=== PATIENT | female | born 1990 | race Asian ===

== ENCOUNTER → 2019-12-04 13:50 | Outpatient (BNVA) | payer BC, SELFPAY | PROVIDERS: Visit Provider Nurse Practitioner Women's Health | DX: Z34.80 Encounter for supervision of other normal pregnancy, unspecified trimester (principal) | CPT/HCPCS: 80053; 80307; 84315; 85027; 86592; 86762; 86803; 86850; 86900; 87340; 87806 ==

== ENCOUNTER → 2019-12-10 10:53 | Outpatient (BNVA) | payer BC, SELFPAY | PROVIDERS: Visit Provider Obstetrics & Gynecology | DX: Z34.80 Encounter for supervision of other normal pregnancy, unspecified trimester (principal) | CPT/HCPCS: 84315; 87491; 87591; 88175 ==

== ENCOUNTER → 2019-12-19 14:20 | Outpatient (BNVA) | payer BC, SELFPAY | PROVIDERS: Visit Provider Obstetrics & Gynecology | DX: Z34.90 Encounter for supervision of normal pregnancy, unspecified, unspecified trimester (principal) | CPT/HCPCS: 76805 ==

== ENCOUNTER → 2019-12-22 15:10 | Outpatient (BNVA) | payer BC, SELFPAY | PROVIDERS: Visit Provider Obstetrics & Gynecology | DX: Z34.90 Encounter for supervision of normal pregnancy, unspecified, unspecified trimester (principal) | CPT/HCPCS: 82950; 84315 ==

== ENCOUNTER → 2020-01-19 12:57 | Outpatient (BNVA) | payer BC, SELFPAY | PROVIDERS: Visit Provider Obstetrics & Gynecology | DX: O26.899 Other specified pregnancy related conditions, unspecified trimester (principal); N89.8 Other specified noninflammatory disorders of vagina; O23.599 Infection of other part of genital tract in pregnancy, unspecified trimester; B96.89 Other specified bacterial agents as the cause of diseases classified elsewhere; Z3A.00 Weeks of gestation of pregnancy not specified | CPT/HCPCS: 84315; 87210 ==

== ENCOUNTER → 2020-02-10 11:56 | Outpatient (BNVA) | payer BC, SELFPAY | PROVIDERS: Visit Provider Obstetrics & Gynecology | DX: Z34.82 Encounter for supervision of other normal pregnancy, second trimester (principal) | CPT/HCPCS: 84315; 85025 ==

== ENCOUNTER → 2020-04-06 13:02 | Outpatient (BNVA) | payer BC, SELFPAY | PROVIDERS: Visit Provider Obstetrics & Gynecology | DX: O09.893 Supervision of other high risk pregnancies, third trimester (principal); O40.3XX0 Polyhydramnios, third trimester, not applicable or unspecified; O24.410 Gestational diabetes mellitus in pregnancy, diet controlled; Z3A.00 Weeks of gestation of pregnancy not specified | CPT/HCPCS: 84315; 87081 ==

== ENCOUNTER 2020-04-14 12:27 | Outpatient (CLI) | payer BC, SELFPAY ==
--- NOTE | 2020-04-14 12:34 | US_ITS ---
WS: [id number] ULTRASOUND OB LIMITED TECHNIQUE: Limited ultrasound examination of the fetus. CLINICAL INFORMATION: WELL BEING COMPARISON: April 06, 2020 FINDINGS: Cervix measures 4.5 cm Single interuterine gestation. presentation is cephalic Placental location is anterior. Placenta grade: 0. heart rate 141 BPM. Normal RIDDHI Biophysical profile 8 out of 8. breathin movement: 2 tone: 2 Amniotic fluid: 2 US/US OB BPP wo NST 45417 IMPRESSION: Normal biophysical profile 8 out of 8
[2020-04-14 12:35] VITALS: BP 127/65; PULSE 78; RESP 18; TEMP 36.8
[2020-04-14 12:38] VITALS: BP 127/65; PULSE 78; TEMP 36.8
[2020-04-14 12:39] VITALS: BMI 28.8
[2020-04-14 13:08] VITALS: BP 127/65; PULSE 78; TEMP 36.8
--- NOTE | 2020-04-14 13:09 | PC.NURSE ---
THIS RN PEDIATRIC TALKED WITH TANG AT DR. VERDE'S OFFICE AND HE DID NOT WANT NST JUST WANT BPP ONLY.
[2020-04-14 22:57] VITALS: BP 127/73; PULSE 114; TEMP 36.2
== END 2020-04-14 13:08 | disposition home or self-care (01) ==
LOC: OPOB 12:31 → OBGYN 04-15 07:51
PROVIDERS: Visit Provider Obstetrics & Gynecology
DX: O26.899 Other specified pregnancy related conditions, unspecified trimester (principal)
CPT/HCPCS: 76819; 84315; 99211

== ENCOUNTER → 2020-04-26 10:52 | Outpatient (BNVA) | payer BC, SELFPAY | PROVIDERS: Visit Provider Obstetrics & Gynecology | DX: O24.410 Gestational diabetes mellitus in pregnancy, diet controlled (principal); Z3A.00 Weeks of gestation of pregnancy not specified | CPT/HCPCS: 84315; 87635 ==

== ENCOUNTER 2020-05-04 17:05 | Inpatient (IN) | payer BC, SELFPAY ==
[2020-05-04] VITALS (7 sets, daily range): BP systolic 111–120; BP diastolic 62–73; PULSE 81–85; RESP 16; TEMP 36.6–37.6; BMI 30.2
[2020-05-04] MEDS: ampicillin 2,000 MG in sodium chloride 0.9% (plus) 50 ML 100 MG IV (19:10)
[2020-05-04] MEDS: dextrose 5%-lactated ringers 1,000 ML 125 ML IV (19:11)
[2020-05-04] MEDS: miSOPROStol 100 mcg tablet 25 MCG VAGINAL (19:18)
[2020-05-04 19:33] LABS: Basophils # 0.1 10^3/uL (0.0-0.1); Basophils % 0.6 %; Eosinophils # 0.2 10^3/uL (0.0-0.8); Eosinophils % 1.9 %; Hematocrit 33.3 % (37.0-47.0); Hemoglobin 10.8 g/dL (11.5-15.3); Lymphocytes # 1.6 10^3/uL (0.8-4.8); Lymphocytes % 20.9 %; Mean Corpuscular HGB Conc 32.4 g/dL (30.0-36.0); Mean Corpuscular Hemoglobin 27.1 pg (28.0-34.0); Mean Corpuscular Volume 83.7 fL (81-99); Mean Platelet Volume 10.5 fL (7.4-10.4); Monocytes # 0.6 10^3/uL (0.2-0.9); Monocytes % 8.2 %; Neutrophils # 5.32 10^3/uL (1.8-7.7); Neutrophils % 68.1 %; Nucleated Red Blood Cells % 0 %; Platelet Count 222 10^3/cmm (130-400); Red Blood Count 3.98 10^6/uL (4.1-5.3); Red Cell Distribution Width 13.4 % (12.1-15.1); White Blood Count 7.8 10^3/uL (4.0-10.0)
[2020-05-04 21:09] LABS: Glucose Point of Care 75 mg/dL (70-110)
[2020-05-04] MEDS: ampicillin 1,000 MG in sodium chloride 0.9% (plus) 50 ML 100 MG IV (23:11)
[2020-05-05] VITALS (97 sets, daily range): BP systolic 92–178; BP diastolic 49–122; PULSE 51–144; RESP 16; TEMP 36.3–37.2; O2SAT 89–100
[2020-05-05 01:29] LABS: Glucose Point of Care 109 mg/dL (70-110)
[2020-05-05 01:29] LABS: Glucose Point of Care 134 mg/dL (70-110)
[2020-05-05] MEDS: ampicillin 1,000 MG in sodium chloride 0.9% (plus) 50 ML 100 MG IV ×4 (03:09→16:12)
[2020-05-05 03:16] LABS: Glucose Point of Care 87 mg/dL (70-110)
[2020-05-05 05:48] LABS: Glucose Point of Care 81 mg/dL (70-110)
[2020-05-05 10:16] LABS: Glucose Point of Care 77 mg/dL (70-110)
[2020-05-05 12:23] LABS: Glucose Point of Care 73 mg/dL (70-110)
[2020-05-05] MEDS: lactated ringers 1,000 ML 999 ML IV ×2 (14:14→15:40)
[2020-05-05] MEDS: fentaNYL 50 mcg/mL INJ 2mL IVP (14:15)
[2020-05-05 14:33] LABS: Glucose Point of Care 77 mg/dL (70-110)
--- NOTE | 2020-05-05 16:00 | ANES.PREANE2 ---
Pre-Anesthetic Assessment Pre-Anesthetic Assessment: Height/Weight: Height 1.5 m Weight 68.039 kg Temp Pulse Resp BP Pulse Ox 99.0 F 90 16 96/56 97 05/05/20 12:00 05/05/20 15:57 05/05/20 14:15 05/05/20 15:57 05/05/20 15:54 Was Beta Shayan taken within 24 hours: N/A Was Clonidine taken within 24 hours: N/A Social: Social History: No alcohol and No tobacco Exam: Pre-Anes Outpt Exam: alert, oriented x 3, clear to auscultation bilaterally and regular rate & rhythm Airway: Submandibular: WNL Cervical ROM: WNL MP: 2 Dentition: Full History/ROS: No significant history except as noted Anesthetic Plan: ASA status: 2 Anesthesia: Regional (specify below) (labor epidural) Risk of > 500 ml blood loss (7ml/kg in children): No Meds/Allergies Current Medications: Current Medications Generic Name Dose Route Start Last Admin Trade Name Freq PRN Reason Stop Dose Admin Fentanyl 25 - 100 mcg 05/04/20 23:44 05/05/20 14:15 Fentanyl 50 Mcg/ Ml Inj 2ml IVP 25 mcg Q1H PRN Administration SEVERE PAIN Lactated Ringer's 1,000 mls @ 999 m ls/hr 05/04/20 18:13 05/05/20 14:14 Lactated Ringers IV 999 mls/hr .Q1H1M PRN Administration Per L&D Rescitati on Protocol Dextrose/Lactated Ringer's 1,000 mls @ 125 m ls/hr 05/04/20 18:15 05/05/20 14:15 Dextrose 5%-Lact ated Ringers IV 0 mls/hr .Q8H JESSICA Infusion Ampicillin Sodium 1,000 mg/ 50 mls @ 100 mls/ hr 05/05/20 12:00 05/05/20 12:12 Sodium Chloride IV 100 mls/hr Q4H JESSICA Administration Protocol Ropivacaine 200 mg in 100 mls @ 13 mls/hr 05/05/20 15:15 05/05/20 15:43 Naropin Premix EPIDURAL 13 mls/hr .Q7H42M JESSICA Administration Lactated Ringer's 1,000 mls @ 999 m ls/hr 05/05/20 15:05/05/20 15:40 Lactated Ringers IV 999 mls/hr .Q1H1M PRN Administration See label comment s PFSH Anesthesia PFSH: Medical History No pertinent past medical history neghx: htn,dm,thyroid,dvt/pe, herpes ---- denies partner with herpes Surgical History No pertinent past surgical history Family History Denies family history of Colon cancer Ovarian cancer Diabetes Clotting disorder Heart disease Hypercholesteremia Breast cancer Bleeding disorder Hypertension Uterine cancer Thyroid disease Stroke Social History Smoking and tobacco status: never smoked Alcohol intake: never Additional social history: - Tobacco use: Never Alcohol use: Never Drug use: Never Female Reproductive History: : 2 Data Anesthesia CBC & Chem 7: 05/04/20 19:02 Other Labs: Laboratory Results - last 48 hr 05/04/20 05/04/20 05/04/20 19:02 21:06 23:22 WBC 7.8 RBC 3.98 L Hgb 10.8 L Hct 33.3 L MCV 83.7 MCH 27.1 L MCHC 32.4 RDW 13.4 Plt Count 222 MPV 10.5 H Neut % (Auto) 68.1 Lymph % (Auto) 20.9 [place] % (Auto) 8.2 Eos % (Auto) 1.9 Baso % (Auto) 0.6 Neut # (Auto) 5.32 Lymph # (Auto) 1.6 [place] # (Auto) 0.6 Eos # (Auto) 0.2 Baso # (Auto) 0.1 Nucleated RBC % (auto) 0 Nucleated RBCs # 0.0 POC Glucose 75 134 H 05/05/20 05/05/20 05/05/20 01:24 03:12 05:38 WBC RBC Hgb Hct MCV MCH MCHC RDW Plt Count MPV Neut % (Auto) Lymph % (Auto) [place] % (Auto) Eos % (Auto) Baso % (Auto) Neut # (Auto) Lymph # (Auto) [place] # (Auto) Eos # (Auto) Baso # (Auto) Nucleated RBC % (auto) Nucleated RBCs # POC Glucose 109 87 81 05/05/20 05/05/20 05/05/20 10:09 12:18 14:26 WBC RBC Hgb Hct MCV MCH MCHC RDW Plt Count MPV Neut % (Auto) Lymph % (Auto) [place] % (Auto) Eos % (Auto) Baso % (Auto) Neut # (Auto) Lymph # (Auto) [place] # (Auto) Eos # (Auto) Baso # (Auto) Nucleated RBC % (auto) Nucleated RBCs # POC Glucose 77 73 77 Cardiac Studies: No Data to Display
--- NOTE | 2020-05-05 16:01 | ANES.PROC ---
Anesthesia Procedures Procedure/Date: 05/05/20 Epidural: Time Out Performed: Yes Consents Signed: Procedure Consent Consent: requested by attending/covering physician, from patient, risks and benefits reviewed and patient agrees to proceed Lumbar Level: L3-L4 Epidural position: sitting Epidural procedure: sterile prep of area, 1% lidocaine to numb the area, 18 g needle, neg for paresthesia, test dose given, 1.5% xylocaine 1:200k epi, placed PCEA, no systemic response, sterile dressing applied and 0.2% Ropiavacaine @ mls/hr (13) Additional Comments: REJI at 4cm, Cath at 9cm.
[2020-05-05] MEDS: oxytocin 30 UNIT/500 ML BAG 600 UNIT IV (19:14)
[2020-05-05] MEDS: methylergonovine 0.2 mg/mL INJ 1 mL IM (19:17)
--- NOTE | 2020-05-05 19:32 | P.PCNOB_ITS ---
Delivery Note: Date of delivery: May 05, 2020 Pre-delivery diagnoses: Term . Gestational diabetes. GBS positive Post-delivery diagnoses: Same as above Procedure: Spontaneous vaginal delivery Op report anesthesia: Epidural Delivering Physician: Waqar Arce MD Estimated blood loss (mL): 500 Findings: Male , Apgars 8/9 Pre-Delivery Course: The patient is a 30 year old, 2, Para 1-0-0-1 with an LMP of 07/05/2019 and an LISA of 05/02/2020 based on 11 week ultrasound, placing her at 40 3/7 weeks today. who has been receiving [place] [facility]. She was admitted to labor and delivery for induction. HPI: Received appropriate care. was complicated by gestational diabetes. Started daily vitamins since the start of care. labs have all been normal, including negative for HIV. She was found to positive for Group B Strep from screening at 36 weeks. She has gained approximately 39 lbs throughout the . She denies a history of HTN during . Delivery: The patient was noted to be complete and pushing, so was placed in the dorsal lithotomy position, prepped and draped in the usual sterile fashion for a vaginal delivery. Pt. Noted to have epidural anesthesia. The patient delivered a viable at 40+3 weeks male infant weighing 4420 g with scores of 8 and 9 at one and five minutes, respectively. The vertex was delivered spontaneously over an intact perineum. The patient was asked to push and the head delivered spontaneously in the RAH position, over an intact perineum. A nuchal cord was checked and none noted. The anterior shoulder delivered easily and the posterior shoulder followed. The remainder of the infant was easily delivered and the oropharynx and nasopharynx was bulb suctioned. The was noted to have spontaneous cry and spontaneous movement of all four extremities. The cord was clamped x 2 and cut and noted to have 2 arteries and one vein. The infant was passed to the mother's abdomen where nursing personnel were in attendance. The placenta delivered intact spontaneously and the uterus was explored. 20 units of Pitocin was placed in the IV bag to firm the uterus. Examination of the cervix and vaginal vault did not reveal any lacerations. A vaginal pack was then placed. Methergine was given for bleeding control. Examination of the perineum showed first-degree laceration. The vaginal pack was then removed. The patient tolerated this procedure well, and recovered in L&D with her infant in her LDR room. All sponge and needle counts were correct. Post-Delivery Status: Good and stable A&P Assessment and plan (1) GBS (group B Streptococcus carrier), +RV culture, currently : Status: Acute (2) Diabetes in : Status: Acute Qualifiers: Diabetes in type: gestational Gestational diabetes mellitus control: diet-controlled Trimester: third trimester Qualified Code(s): O24.410 - Gestational diabetes mellitus in , diet controlled (3) Short interval between pregnancies affecting , antepartum: Status: Acute Coding Level of Care Code Acute Support Manager for g Fwd Diagnoses GBS (group B Streptococcus carrier), +RV culture, currently O99.820 Diabetes in O24.410 Diabetes in type: gestational Gestational diabetes mellitus control: diet-controlled Trimester: third trimester Short interval between pregnancies affecting , antepartum O09.899
[2020-05-05] MEDS: lanolin oint 7 gm 1 APPLIC TOPICAL (22:30)
[2020-05-05] MEDS: ibuprofen 800 mg tablet PO (22:30)
[2020-05-05] MEDS: benzocaine-menthol 78 gm Canister 1 SPRAY TOPICAL (22:30)
--- NOTE | 2020-05-05 22:30 | PC.NURSE ---
Mother voided on the bed and the floor on the way to the bathroom. 125 collected in hat in toilet.
[2020-05-06] VITALS (8 sets, daily range): BP systolic 105–126; BP diastolic 58–72; PULSE 78–100; RESP 16; TEMP 36.4–37.6; O2SAT 100
[2020-05-06 08:07] LABS: Hematocrit 30.4 % (37.0-47.0); Hemoglobin 10.1 g/dL (11.5-15.3); Mean Corpuscular HGB Conc 33.2 g/dL (30.0-36.0); Mean Corpuscular Hemoglobin 27.5 pg (28.0-34.0); Mean Corpuscular Volume 82.8 fL (81-99); Mean Platelet Volume 10.4 fL (7.4-10.4); Platelet Count 182 10^3/cmm (130-400); Red Blood Count 3.67 10^6/uL (4.1-5.3); Red Cell Distribution Width 13.5 % (12.1-15.1); White Blood Count 15.8 10^3/uL (4.0-10.0)
[2020-05-06] MEDS: prenatal vitamin Capsule 1 CAP PO (09:30)
[2020-05-06] MEDS: docusate sodium 100 mg Capsule PO ×2 (09:30→17:53)
[2020-05-06] MEDS: ibuprofen 800 mg tablet PO ×3 (09:30→21:18)
[2020-05-07 03:30] VITALS: BP 93/61; PULSE 83; RESP 16; TEMP 36.6; TEMP 36.7; O2SAT 97
[2020-05-07] MEDS: prenatal vitamin Capsule 1 CAP PO (08:27)
[2020-05-07] MEDS: docusate sodium 100 mg Capsule PO (08:27)
[2020-05-07] MEDS: ibuprofen 800 mg tablet PO (08:27)
[2020-05-07 09:55] VITALS: BP 104/69; PULSE 76; RESP 16; TEMP 36.8
[2020-05-07 13:40] VITALS: BP 122/71; PULSE 89; RESP 16; TEMP 36.8
[2020-05-07 13:43] VITALS: BP 122/71; PULSE 89; RESP 16; TEMP 36.8
--- NOTE | 2020-05-18 10:10 | P.DS_ITS ---
Discharge Providers PHARMACY CUSTOMER CARE SPECIALIST Date of Admission: 05/04/20 17:05 Date of Discharge: 05/18/20 Attending Provider at Admission: Ralph Bautista MD Attending Provider at Discharge: Ralph Bautista MD Diagnoses at Discharge Discharge Diagnosis (1) GBS (group B Streptococcus carrier), +RV culture, currently : Status: Acute (2) Diabetes in : Status: Resolved Qualifiers: Diabetes in type: gestational Gestational diabetes mellitus control: diet-controlled Trimester: third trimester Qualified Code(s): O24.410 - Gestational diabetes mellitus in , diet controlled (3) Short interval between pregnancies affecting , antepartum: Status: Resolved Reason for Visit Reason for Visit: Induction of labor Hospital Course Hospital Course Sons 30 year old, 2, Para 1-0-0-1 with an LMP of 07/05/2019 and an LISA of 05/02/2020 based on 11 week ultrasound, placing her at 40 2/7 weeks on admission. complicated by gestational diabetes. Admitted to labor and delivery for induction. Progressed to have a spontaneous vaginal delivery without complications. She delivered at 40+3 weeks male weighing 4420 g with scores of 8 and 9 at one and five minutes. recovery was uneventful. She is afebrile and hemodynamically stable. Tolerating diet well. Ambulating without difficulty. Information Peripartum Data: Delivery Method: Vaginal Physical Exam Narrative: EXAM NARRATIVE: GA; alert and oriented x 3 HEENT: normal Breasts: engorged Nipples - skin intact Lungs; clear to auscultation Heart: regular rhythm, no murmurs. Abd: Appropriately tender. BS+. Uterine fundus below umbilicus. No Fundal Tenderness. Perineum: normal lochia. Extremities: no edema, no cyanosis, no tenderness. Discharge Data Vitals: Last Vital Signs Temp 98.2 F 05/07/20 13:43 Pulse 89 05/07/20 13:43 Resp 16 05/07/20 13:43 BP 122/71 05/07/20 13:43 Pulse Ox 97 05/07/20 03:30 Discharge Plan Discharge Patient Disposition: Home Condition: Stable Prescriptions: New ibuprofen 800 mg tablet 800 mg PO TID PRN (Reason: pain) Qty: 60 RF: 0 ferrous sulfate 325 mg (65 mg iron) tablet 325 mg PO BID Qty: 60 RF: 0 Colace 100 mg capsule 100 mg PO BID Qty: 60 RF: 0 acetaminophen 325 mg capsule 325 mg PO Q4H PRN (Reason: fever or pain) Qty: 60 RF: 0 Continued prenat.vits,drea,mxs-pibn-ljpxk Tablet 1 tab PO DAILY RF: 0 calcium carb,uyh-F2-chplaamhxg 315-250-200 mg-unit-mg tablet PO BID RF: 0 Discharge Orders: Discharge Order (Routine); Ordered 05/07/20 Ordered By: Waqar Arce Referrals: Waqar Arce MD [Physician] - 2 weeks (Your 6 week post- appointment has been scheduled for 06/18/20 at 8:15. You will need to be fasting for this appointment. ) Ralph Bautista MD [Physician] - 06/18/20 8:15 am (Your 6 week post- appointment has been scheduled for 06/18/20 at 8:15. You will need to be fasting for this appointment. ) Discharge Diet: Usual diet Discharge Activity: Increase activity as tolerated Patient Instructions: Vitamins (By mouth), Your Baby (GEN), Pre-eclampsia and Eclampsia (GEN), Bleeding (GEN), OB Discharge Report, OB Food/Drug Interaction Guide, OB Proud Parent Packet, OB Vaginal Deliveries, Abnormal Bleeding Activity Restrictions/Additional Instructions: 1. Please call [facility] on next working day to make your post- appointment in 2 weeks monitor glucose. 2. Please stay home until you come back to the clinic on first post-operative check up. 3. Please follow instructions on your medications CAREFULLY. 4. If you have abdominal incision, do not cover it unless dressing is necessary because of drainage. OK to shower, but avoid bath. Leave steri-strips until they fall off. If they are still on one week after surgery, you may remove them. 5. If you had vaginal surgery, your doctor may instruct you to take SITZ bath. 6. Yellow, blood tinged odorous vaginal discharge is usually normal after hysterectomy or vaginal surgeries. 7. No sexual intercourse, tampons, or douches until you are completely released from the post-operative care. 8. Avoid constipation by eating right and maybe using some Metamucil or Milk of Magnesia. 9. All prescription refills are given during the working hours. Please do no wait till it runs out. Call the clinic at [phone] before your medication runs out. The clinic will get in touch with your doctor to prescribe medications if necessary. 10. Please remain within 40 mile radius from our hospital because emergencies do happen now and then during the post-operative period. 11. If you have stairs at home, take one step at a time slowly and minimize the number of trips. It helps to stay in one floor for the next few days. No lifting except what you can lift by one hand until you are released from the post-operative care. 12. Driving is discouraged until you are well healed. It may be 3-4 weeks before you feel strong enough to drive. You should be able to turn and look through the rear window without pain and you should be able to push the brake pedal very hard without pain before you drive. No fast rules, but SAFETY should be your primary concern. DO NOT drive if you are on sedating medications such as narcotics. 13. Call the clinic (during working hours) to make urgent appointment or go to the Emergency room, if any of the following occurs: i. Vaginal bleeding becomes heavy, more than a period. ii. Incision becomes red and sore, or drains pus. iii. Your temperature is over 100.4 or you have chill. iv. IV site becomes red and swollen (a little ``knot?? is usually OK) v. Persistent nausea and vomiting vi. Persistent constipation or diarrhea vii. Rash or allergic reaction to medications. Discharge Attestations PHARMACY CUSTOMER CARE SPECIALIST Time Spent in Discharge Care*: greater than 30 min Coding Level of Care Code Acute Skirt Clipper for Chg Fwd Diagnoses GBS (group B Streptococcus carrier), +RV culture, currently O99.820 Diabetes in O24.410 Diabetes in type: gestational Gestational diabetes mellitus control: diet-controlled Trimester: third trimester Short interval between pregnancies affecting , antepartum O09.899
== END 2020-05-07 14:25 | disposition home or self-care (01) | DRG 807 ==
PROVIDERS: Obstetrics & Gynecology; Admitting Provider Obstetrics & Gynecology; Visit Provider Obstetrics & Gynecology
DX: O24.420 Gestational diabetes mellitus in childbirth, diet controlled (principal); Z37.0 Single live birth; O99.824 Streptococcus B carrier state complicating childbirth; O69.2XX0 Labor and delivery complicated by other cord entanglement, with compression, not applicable or unspecified; O70.0 First degree perineal laceration during delivery; Z3A.40 40 weeks gestation of pregnancy
CPT/HCPCS: 36415; 36416; 51702; 59025; 59409; 82962; 85025; 85027; 96372; 98960; 99211; J0290; J2210; J2795; J3010

== ENCOUNTER → 2020-06-24 10:08 | Outpatient (BNVA) | payer BC, SELFPAY | PROVIDERS: Visit Provider Obstetrics & Gynecology | DX: O24.410 Gestational diabetes mellitus in pregnancy, diet controlled (principal); Z3A.00 Weeks of gestation of pregnancy not specified | CPT/HCPCS: 82950 ==

== ENCOUNTER → 2021-01-17 09:16 | Outpatient (BNVA) | payer BC, SELFPAY | PROVIDERS: Visit Provider Obstetrics & Gynecology | DX: O09.891 Supervision of other high risk pregnancies, first trimester (principal); Z3A.11 11 weeks gestation of pregnancy | CPT/HCPCS: 80307; 83036; 84315; 85027; 86592; 86762; 86803; 86850; 86900; 87086; 87340 ==

== ENCOUNTER → 2021-02-04 10:06 | Outpatient (BNVA) | payer BC, SELFPAY | PROVIDERS: Visit Provider Obstetrics & Gynecology | DX: Z34.80 Encounter for supervision of other normal pregnancy, unspecified trimester (principal) | CPT/HCPCS: 84315; 87491; 87591 ==

== ENCOUNTER → 2021-03-29 08:50 | Outpatient (BNVA) | payer BC, SELFPAY | PROVIDERS: Visit Provider Obstetrics & Gynecology | DX: Z36.89 Encounter for other specified antenatal screening (principal); Z3A.20 20 weeks gestation of pregnancy | CPT/HCPCS: 76805; 76817 ==

== ENCOUNTER → 2021-04-22 11:11 | Outpatient (BNVA) | payer BC, SELFPAY | PROVIDERS: Visit Provider Obstetrics & Gynecology | DX: Z34.80 Encounter for supervision of other normal pregnancy, unspecified trimester (principal) | CPT/HCPCS: 82950; 84315 ==

== ENCOUNTER → 2021-05-30 08:09 | Outpatient (BNVA) | payer BC, SELFPAY | PROVIDERS: Visit Provider Obstetrics & Gynecology | DX: Z34.80 Encounter for supervision of other normal pregnancy, unspecified trimester (principal) | CPT/HCPCS: 82951; 82952; 85027 ==

== ENCOUNTER 2021-07-07 09:14 | Outpatient (CLI) | payer BC, SELFPAY ==
--- NOTE | 2021-07-07 09:15 | US_ITS ---
WS: [id number] ULTRASOUND OB LIMITED TECHNIQUE: Transabdominal Limited ultrasound examination of the fetus. CLINICAL INFORMATION: O24.419 - Gestational diabetes mellitus in , uns... COMPARISON: March 29, 2021 FINDINGS: Cervix is long and closed measuring 4.7 cm Single interuterine gestation. presentation is cephalic Placental location is posterior. Difficulty visualizing placenta tip today due to positioning. Placen ta tip appears approximately 4.9 cm from the cervical os today but somewhat difficult to visualize. P lacenta grade: 1 heart rate 133 BPM. Normal RIDDHI 12.3 cm Biophysical profile 8 out of 8. breathin movement: 2 tone: 2 Amniotic fluid: 2 US/US OB BPP wo NST 59532 IMPRESSION: 1. Normal biophysical profile 8 out of 8 2. Placental location is posterior. History of low-lying placenta.Placenta tip appears approximately 4.9 cm from the cervical os today but somewhat difficult to visualize due to positioning. Recommend additional ultrasound assessment pr ior to delivery for verification. Transvaginal imaging may be helpful in furthe r evaluation 3. Cervix is long and closed. 4. Cephalic presentation.
== END 2021-07-07 09:15 | disposition home or self-care (01) ==
PROVIDERS: Visit Provider Obstetrics & Gynecology
DX: O24.419 Gestational diabetes mellitus in pregnancy, unspecified control (principal)
CPT/HCPCS: 76819

== ENCOUNTER 2021-07-14 14:45 | Outpatient (CLI) | payer BC, SELFPAY ==
[2021-07-14 14:45] VITALS: BMI 29.8
[2021-07-14 14:52] VITALS: BP 117/62; PULSE 86
[2021-07-14 15:12] VITALS: BP 114/64; PULSE 87
[2021-07-14 15:21] VITALS: BP 114/64; PULSE 87; RESP 18
== END 2021-07-14 15:20 | disposition home or self-care (01) ==
LOC: OPOB 14:48 → OBGYN 14:49
PROVIDERS: Visit Provider Obstetrics & Gynecology
DX: O24.419 Gestational diabetes mellitus in pregnancy, unspecified control (principal); Z3A.00 Weeks of gestation of pregnancy not specified
CPT/HCPCS: 59025

== ENCOUNTER 2021-07-22 15:55 | Outpatient (CLI) | payer BC, SELFPAY ==
--- NOTE | 2021-07-22 16:05 | US_ITS ---
WS: [id number] BIOPHYSICAL PROFILE AMNIOTIC FLUID HISTORY: GDM COMPARISON: 07/07/2021 Cardiac activity: 150 bpm. Cervix: Difficult to visualize. The head is very deeply positioned in the pelvis. Placenta: Posterior, no previa or abruption. Placenta grade: 2 Parameters are as follows: Breathin Movement: 2 Tone: 2 Fluid volume: 2 Amniotic fluid index: 11.5 cm which is between the fifth and 50th percentile. Largest vertical pocket of amniotic fluid is 3.8 cm. US/US OB BPP wo NST 65681 IMPRESSION: 1. Biophysical profile score: 8/8. 2. Normal amniotic fluid index.
== END 2021-07-22 16:15 | disposition home or self-care (01) ==
LOC: OPOB 15:56
PROVIDERS: Visit Provider Obstetrics & Gynecology
DX: O24.419 Gestational diabetes mellitus in pregnancy, unspecified control (principal); Z3A.00 Weeks of gestation of pregnancy not specified
CPT/HCPCS: 76819; 84315; 87081

== ENCOUNTER → 2021-07-29 13:14 | Outpatient (BNVA) | payer BC, SELFPAY | PROVIDERS: Visit Provider Obstetrics & Gynecology | DX: O09.90 Supervision of high risk pregnancy, unspecified, unspecified trimester (principal); O24.419 Gestational diabetes mellitus in pregnancy, unspecified control; Z3A.00 Weeks of gestation of pregnancy not specified | CPT/HCPCS: 81000 ==

== ENCOUNTER 2021-08-04 09:22 | Outpatient (CLI) | payer BC, SELFPAY ==
--- NOTE | 2021-08-04 09:30 | US_ITS ---
WS: [id number] BIOPHYSICAL PROFILE AMNIOTIC FLUID HISTORY: O24.419 - Gestational diabetes mellitus in COMPARISON: 07/22/2021 Cephalic position. Cardiac activity: 136 bpm. Cervix: closed. Placenta: Fundal, no previa or abruption. Placenta grade: 2 Parameters are as follows: Breathin Movement: 2 Tone: 2 Fluid volume: 2 Amniotic fluid index: 10.3 cm which is normal. Largest vertical pocket of amniotic fluid 2.8 cm. US/US OB BPP wo NST 27208 IMPRESSION: 1. Biophysical profile score: 8/8. 2. Normal amniotic fluid index.
== END 2021-08-04 09:23 | disposition home or self-care (01) ==
PROVIDERS: Visit Provider Obstetrics & Gynecology
DX: O24.419 Gestational diabetes mellitus in pregnancy, unspecified control (principal)
CPT/HCPCS: 76819

== ENCOUNTER 2021-08-09 01:06 | Inpatient (IN) | payer BC, SELFPAY ==
[2021-08-09] VITALS (34 sets, daily range): BP systolic 96–134; BP diastolic 50–83; PULSE 65–139; RESP 16–18; TEMP 36.1–36.9; O2SAT 98–100; BMI 26.3
[2021-08-09 00:45] LABS: Glucose Point of Care 96 mg/dL (70-110)
[2021-08-09 01:14] LABS: Basophils # 0.1 10^3/uL (0.0-0.1); Basophils % 0.6 %; Eosinophils # 0.3 10^3/uL (0.0-0.8); Eosinophils % 2.9 %; Hematocrit 30.2 % (37.0-47.0); Hemoglobin 9.8 g/dL (11.5-15.3); Lymphocytes % 23.2 %; Mean Corpuscular HGB Conc 32.5 g/dL (30.0-36.0); Mean Corpuscular Volume 70.9 fl (81-99); Monocytes # 0.6 10^3/uL (0.2-0.9); Monocytes % 6.9 %; Neutrophils # 5.76 10^3/uL (1.8-7.7); Neutrophils % 66.1 %; Nucleated Red Blood Cells % 0 %; Platelet Count 236 10^3/cmm (130-400); Red Blood Count 4.26 10^6/uL (4.1-5.3); Red Cell Distribution Width 14.4 % (12.1-15.1); White Blood Count 8.7 10^3/uL (4.0-10.0)
[2021-08-09] MEDS: lactated ringers 1,000 ML 999 ML IV (02:28)
--- NOTE | 2021-08-09 03:10 | ANES.PROC ---
Documented by User: Linda Arnett CRNA 08/09/21 03:18 Anesthesia Procedures Procedure/Date: 08/09/21 Epidural: Time Out Performed: Yes Consents Signed: Procedure Consent Consent: from patient, risks and benefits reviewed and patient agrees to proceed Lumbar Level: L3-L4 Epidural position: sitting Epidural procedure: sterile prep of area, 1% lidocaine to numb the area, 18 g needle, negative for paresthesia passed, neg for paresthesia, test dose given, 1.5% xylocaine 1:200k epi, no systemic response, sterile dressing applied and L.U.D. no apparent complications Additional Comments: pt said babies coming as epidural was being taped in. no blous given, pump not hooked up, never started. laid pt down and baby born immediately. Documented by User: Vishnu Francis DO 08/09/21 08:18 Anesthesia Procedures Procedure/Date: 08/09/21
--- NOTE | 2021-08-09 03:18 | ANES.PREANE2 ---
Documented by User: Linda Arnett CRNA 08/09/21 03:19 Pre-Anesthetic Assessment Height/Weight: Height 1.57 m Weight 65.317 kg Temp Pulse BP Pulse Ox 97.0 F L 94 134/83 100 08/09/21 00:34 08/09/21 03:10 08/09/21 03:10 08/09/21 03:06 Preop Diagnosis: IUP epidrual Familial anesthetic complications: none Was Beta Shayan taken within 24 hours: N/A Was Clonidine taken within 24 hours: N/A Last Intake: 20:00 Social No alcohol and No tobacco Exam alert and oriented x 3 Airway Submandibular: within normal limits Cervical ROM: within normal limits Mallampati: Class II Dentition: full History/ROS No significant history except as noted GI Gastroesophageal Reflux Disease Metabolic Diabetes Mellitus (gestational only) Anesthetic Plan ASA status: 3 Anesthesia: Anesthesia Evaluation and Regional (specify below) (epidural) Risk of > 500 ml blood loss (7ml/kg in children): No Medications/Allergies Home Medications Medication Instructions Recorded Confirmed Last Taken Type prenat.vits,drea,qnx-ocql-vmzts 1 tab PO DAILY 12/04/19 08/05/21 04/13/20 20:00 History calcium carb,cit 315 mg-vitamin D3 tab PO BID tab 04/14/20 08/05/21 04/13/20 20:00 History 250 unit-phytosterols 200 mg tablet acetaminophen 325 mg capsule 325 mg PO Q4H PRN #60 cap 05/07/20 08/05/21 Unknown Rx ferrous sulfate 325 mg (65 mg 325 mg PO ONCE tab 01/17/21 08/05/21 Unknown History iron) tablet Allergies Allergy/AdvReac Type Severity Reaction Status Date / Time No Known Allergies Allergy Verified 08/05/21 10:11 Current Medications Generic Name Dose Route Start Last Admin Trade Name Freq PRN Reason Stop Dose Admin Lactated Ringer's 1,000 mls @ 999 mls/hr 08/09/21 02:21 08/09/21 02:28 Lactated Ringers IV 999 mls/hr .Q1H1M PRN Administration See label comments [facility] Anesthesia Medical History History of gestational diabetes mellitus (GDM) Had GDM with second . Surgical History No pertinent past surgical history Family History Denies family history of Colon cancer Ovarian cancer Diabetes Clotting disorder Heart disease Hypercholesteremia Breast cancer Bleeding disorder Hypertension Uterine cancer Thyroid disease Stroke Social History Additional social history: - Tobacco use: Never Alcohol use: Never Drug use: Never Female Reproductive History : 3 Data Anesthesia : 08/09/21 00:38 Short CBC 08/09/21 Range/Units 00:38 WBC 8.7 (4.0-10.0) 10^3/uL Hgb 9.8 L (11.5-15.3) g/dL Hct 30.2 L (37.0-47.0) % MCV 70.9 L (81-99) fl Plt Count 236 (130-400) 10^3/cmm Neut % (Auto) 66.1 % Neut # (Auto) 5.76 (1.8-7.7) 10^3/uL Cardiac Studies: No Data to Display
--- NOTE | 2021-08-09 03:46 | PM.DELIVERY ---
Delivery Note: Date of delivery: August 09, 2021 - PRE-DELIVERY DIAGNOSIS: 31-year-old 3 para 2-0-0-2 at 39 weeks and 5 days gestation GBS negative Active labor Gestational diabetes-diet controlled Anemia on iron POST-DELIVERY DIAGNOSIS: Vaginal delivery on 08/09/2021 PROCEDURE: Vaginal delivery on 08/09/2021. ANESTHESIA: Epidural anesthesia DELIVERING PHYSICIAN: Padmini Goldstein FACOG PRE-DELIVERY COURSE: Ms. Pizarro is a 39-year-old 3 para 2-0-0-2 at 39 weeks and 5 days who presented to labor and delivery at 12:45 AM on 08/09/2021 with reports of contractions that started earlier that night but that got significantly worse. On presentation on Labor and Delivery she was noted to be 6 cm 80% and -2 station with intact membranes and she was admitted in active labor. She was noted to be GBS negative. She had a history significant for gestational diabetes that was diet-controlled and fingersticks were done. She initially desired no anesthesia however later changed her mind. After 1 hour she had made no cervical change and was still 6 cm and then desired an epidural. Patient set up for an epidural and as soon as epidural was done patient had spontaneous rupture of membranes with clear fluid at 3:10 AM and when patient was laid back on the bed baby was noted to be delivering and was delivered at 3:12 AM. I was in the call room and notified immediately and was there within 1 minute of baby's . DELIVERY NOTE: Baby was noted to be connected to the cord and was on mother's belly. Cord was clamped and cut. The placenta delivered spontaneously intact with membranes and was discarded. The fundus was noted to be firm and well contracted. The vagina and cervix were inspected and no cervical or sulcal lacerations were noted. The perineum was also noted to be intact Baby girl, Harper born at 3:12 AM on 08/09/2021 with 9/10, weighing 7 pounds 3 ounces, 30 to 70 g, 20 inches long. Placenta was delivered spontaneously intact with membranes at 3:21 AM. Cotyledons were intact , centrally inserted umbilical cord with 3 vessels noted. Estimated blood loss 300 mL. Complications-none, both baby and mother were left to recover in a stable condition This documentation was created by [employer] staff psychiatrist software (known for inherent staff psychiatrist error). Every effort was made to assure accuracy of staff psychiatrist. Any obvious errors or omissions should be clarified with the author of the document. History History History 3 Term 2 Miscarriages/Ectopic 0 0 Living Children 2 Coding Level of Care Code Acute Agricultural Chemicals Inspector for Sallie Evans
[2021-08-09 05:47] LABS: Glucose Point of Care 97 mg/dL (70-110)
--- NOTE | 2021-08-09 08:32 | ANE.PACU2 ---
Inpatient post-anesthesia follow up: Airway intact: Yes Vital signs: Temperature 98.0 F Pulse Rate 71 Respiratory Rate 16 Blood Pressure 101/64 Pulse Oximetry 99 Oxygen Delivery Me thod Room Air Oxygen Flow Rate Fraction of Inspir ed Oxygen Hydration adequate: Yes Nausea and vomiting: No Pain level: 2 Mental status: Baseline
[2021-08-09] MEDS: prenatal vitamin Capsule 1 CAP PO (08:48)
[2021-08-09] MEDS: docusate sodium 100 mg Capsule PO ×2 (08:48→18:44)
[2021-08-09] MEDS: ibuprofen 800 mg tablet PO ×2 (08:49→21:06)
[2021-08-09] MEDS: lanolin oint 7 gm 1 APPLIC TOPICAL (08:49)
[2021-08-09 17:43] LABS: Hematocrit 29.8 % (37.0-47.0); Hemoglobin 9.5 g/dL (11.5-15.3); Mean Corpuscular HGB Conc 31.9 g/dL (30.0-36.0); Mean Corpuscular Volume 72.2 fl (81-99); Mean Platelet Volume 11.2 fL (7.4-10.4); Platelet Count 240 10^3/cmm (130-400); Red Blood Count 4.13 10^6/uL (4.1-5.3); Red Cell Distribution Width 14.5 % (12.1-15.1); White Blood Count 11.1 10^3/uL (4.0-10.0)
[2021-08-10 04:18] VITALS: BP 101/64; PULSE 71; TEMP 36.7; O2SAT 99
--- NOTE | 2021-08-10 07:39 | P.DS_ITS ---
Discharge Providers MACHINE COREMAKER Date of Admission: 08/09/21 01:06 Date of Discharge: 08/10/21 Attending Provider at Admission: Padmini Dailey MD Attending Provider at Discharge: Padmini Dailey MD PRE-DELIVERY DIAGNOSIS: 31-year-old 3 para 2-0-0-2 at 39 weeks and 5 days gestation GBS negative Active labor Gestational diabetes-diet controlled Anemia on iron POST-DELIVERY DIAGNOSIS: Vaginal delivery on 08/09/2021 PROCEDURE: Vaginal delivery on 08/09/2021. ANESTHESIA: Epidural anesthesia DELIVERING PHYSICIAN: Padmini Goldstein FACOG PRE-DELIVERY COURSE: Ms. Pizarro? is a 39-year-old 3 para 2-0-0-2 at 39 weeks and 5 days who presented to labor and delivery at 12:45 AM on 08/09/2021 with reports of contractions that started earlier that night but that got significantly worse.? On presentation on Labor and Delivery she was noted to be 6 cm 80% and -2 station with intact membranes and she was admitted in active labor.? She was noted to be GBS negative.? She had a history significant for gestational diabetes that was diet-controlled and fingersticks were done.? She initially desired no anesthesia however later changed her mind.? After 1 hour she had made no cervical change and was still 6 cm and then desired an epidural.? Patient set up for an epidural and as soon as epidural was done patient had spontaneous rupture of membranes with clear fluid at? 3:10 AM and when patient was laid back on the bed baby was noted to be delivering and was delivered at 3:12 AM.? I was in the call room and notified immediately and was there within 1 minute of baby's . DELIVERY? NOTE: Baby was noted to be connected to the cord and was on mother's belly.? Cord was clamped and cut. The placenta delivered spontaneously intact with membranes and was discarded. The fundus was noted to be firm and well contracted. The vagina and cervix were inspected and no cervical or sulcal lacerations were noted.? The perineum was also noted to be intact Baby girl, Harper born at 3:12 AM on 08/09/2021 with 9/10, weighing 7 pounds 3 ounces, 30 to 70 g, 20 inches long. Placenta was delivered spontaneously intact with membranes at 3:21 AM. Cotyledons were intact , centrally inserted umbilical cord with 3 vessels noted. Estimated blood loss 300 mL. Complications-none, both baby and mother were left to recover in a stable condition HOSPITAL COURSE: She underwent an uncomplicated vaginal delivery on 08/09/2021. She did well on day 0 and was ambulating well, tolerating regular diet, voiding freely, passing flatus. She was breast-feeding without difficulty and bonding well with her daughter. Pain was well-controlled with by mouth pain medication. She denied nausea, vomiting, fever, chills, shortness of breath, leg pain. She had moderate vaginal bleeding. On day # 1 she continued to do well with stable vital signs and stable hemoglobin at 9.5 from a predelivery value of 9.8. She was discharged home on day 1 in a stable condition, as she desired early discharge. Warning signs for endometritis, mastitis, DVT/PE were reviewed with her. Post delivery activity restrictions were also reviewed with her at all her questions were answered to her satisfaction. Vasectomy is a plan for contraception and they were instructed on importance of getting follow-up semen analysis to ensure that there is no residual sperm. Patient will also need a 2-hour fasting GTT when she comes in for her visit and this has been scheduled EXAM AT DISCHARGE: Gen.: No acute distress Heart: S1-S2 heard, regular rate and rhythm Lungs: Clear to auscultation bilaterally Abdomen: Soft, fundus firm below umbilicus, Legs: No calf tenderness, trace bilateral pitting pedal edema. CONDITION AT DISCHARGE: Stable This documentation was created by [employer] greensman software (known for inherent greensman error). Every effort was made to assure accuracy of greensman. Any obvious errors or omissions should be clarified with the author of the document. Reason for Visit Reason for Visit: Contractions Information Peripartum Data: Delivery Method: Vaginal History History History 3 Term 2 Miscarriages/Ectopic 0 0 Living Children 2 Discharge Data Studies Completed and Pending Laboratory Results WBC 11.1 10^3/uL (4.0-10.0) H 08/09/21 17:20 RBC 4.13 10^6/uL (4.1-5.3) 08/09/21 17:20 Hgb 9.5 g/dL (11.5-15.3) L 08/09/21 17:20 Hct 29.8 % (37.0-47.0) L 08/09/21 17:20 MCV 72.2 fl (81-99) L 08/09/21 17:20 MCH 23.0 pg (28.0-34.0) L 08/09/21 17:20 MCHC 31.9 g/dL (30.0-36.0) 08/09/21 17:20 RDW 14.5 % (12.1-15.1) 08/09/21 17:20 Plt Count 240 10^3/cmm (130-400) 08/09/21 17:20 MPV 11.2 fL (7.4-10.4) H 08/09/21 17:20 Neut % (Auto) 66.1 % 08/09/21 00:38 Lymph % (Auto) 23.2 % 08/09/21 00:38 Elk % (Auto) 6.9 % 08/09/21 00:38 Eos % (Auto) 2.9 % 08/09/21 00:38 Baso % (Auto) 0.6 % 08/09/21 00:38 Neut # (Auto) 5.76 10^3/uL (1.8-7.7) 08/09/21 00:38 Lymph # (Auto) 2.0 10^3/uL (0.8-4.8) 08/09/21 00:38 Elk # (Auto) 0.6 10^3/uL (0.2-0.9) 08/09/21 00:38 Eos # (Auto) 0.3 10^3/uL (0.0-0.8) 08/09/21 00:38 Baso # (Auto) 0.1 10^3/uL (0.0-0.1) 08/09/21 00:38 Nucleated RBC % (auto) 0 % 08/09/21 00:38 Nucleated RBCs # 0.0 /100WBC 08/09/21 00:38 POC Glucose 97 mg/dL (70-110) 08/09/21 02:57 Vitals Last Vital Signs Temp 98.1 F 08/10/21 04:18 Pulse 71 08/10/21 04:18 Resp 18 08/09/21 13:10 BP 101/64 08/10/21 04:18 Pulse Ox 99 08/10/21 04:18 Discharge Plan Discharge Patient Disposition: Home Condition: Stable Prescriptions: New docusate sodium 100 mg Capsule 100 mg PO BID PRN (Reason: constipation) Qty: 30 0RF ibuprofen 800 mg tablet 800 mg PO Q8H Qty: 30 0RF Continued prenat.vits,drea,dby-zupi-tisqr Tablet 1 tab PO DAILY 0RF calcium carb,jrh-[id number] 315-250-200 mg-unit-mg tablet PO BID 0RF ferrous sulfate 325 mg (65 mg iron) tablet 325 mg PO ONCE 0RF acetaminophen 325 mg capsule 325 mg PO Q4H PRN (Reason: fever or pain) Qty: 60 0RF Discharge Orders: Discharge Order (Routine); Ordered 08/10/21 Ordered By: Padmini Dailey Referrals: Waqar Arce MD [Physician] - Discharge Diet: Regular Discharge Activity: Limit activity as instructed Patient Instructions: Opioid Safety Activity Restrictions/Additional Instructions: No heavy lifting for 6 weeks, pelvic rest for 6 weeks Follow-up with Dr. Arce for 6-week visit--needs 2-hour fasting GTT Emergency room precautions reviewed Discharge Attestations MACHINE COREMAKER Time Spent in Discharge Care*: greater than 30 min Coding Level of Care Code Acute Retail Shift Leader for Sallie Evans
[2021-08-10] MEDS: prenatal vitamin Capsule 1 CAP PO (08:46)
[2021-08-10] MEDS: docusate sodium 100 mg Capsule PO (08:47)
[2021-08-10] MEDS: ibuprofen 800 mg tablet PO (08:47)
[2021-08-10 11:00] VITALS: BP 103/68; PULSE 86; RESP 16; TEMP 36.6; O2SAT 99
== END 2021-08-10 11:00 | disposition home or self-care (01) | DRG 807 ==
LOC: OPOB 01:07 → OBGYN 01:07
PROVIDERS: Admitting Provider Obstetrics & Gynecology; Visit Provider Obstetrics & Gynecology
DX: O24.420 Gestational diabetes mellitus in childbirth, diet controlled (principal); Z37.0 Single live birth; O99.02 Anemia complicating childbirth; Z3A.39 39 weeks gestation of pregnancy; D50.9 Iron deficiency anemia, unspecified
CPT/HCPCS: 36415; 36416; 59025; 59409; 82962; 85025; 85027; 99211